=== PATIENT | male | born 1960 | race Caucasian/White ===

== ENCOUNTER → 2018-04-25 | Outpatient (CLI) | payer OTHER ==
--- NOTE | 2018-04-25 17:16 | ECHOF ---
Referral Reason:I10 Hypertension MEASUREMENTS -------- HEIGHT: 162.6 cm WEIGHT: 96.2 kg BP: IVSd: 1.3 cm (0.6 - 1.1) LVIDd: 4.9 cm (3.9 - 5.3) LVPWd: 1.6 cm (0.6 - 1.1) IVSs: 1.5 cm LVIDs: 3.7 cm LVPWs: 2.1 cm LA Diam: 4.4 cm (2.7 - 3.8) RVIDd: 2.6 cm (< 3.3) LAESV Index (A-L): 39.29 ml/m Ao Diam: 2.9 cm (2.0 - 3.7) LA Diam: 4.4 cm (2.7 - 3.8) AV Cusp: 2.5 cm (1.5 - 2.6) EPSS: 0.5 cm MV E Eder: 0.55 m/s MV DecT: 168 ms MV A Eder: 0.77 m/s MV E/A Ratio: 0.72 AR PHT: 665 ms RAP: 5.00 mmHg RVSP: 25.69 mmHg MV EF SLOPE: 102.09 mm/s (70 - 150) MV EXCURSION: 17.01 mm (> 18.000) FINDINGS -------- Sinus rhythm. This was a technically good study. The left ventricular size is normal. There is moderate concentric left ventricular hypertrophy. O verall left ventricular systolic function is normal with, an EF between 55 - 60 %. The right ventricle is normal in size. The left atrial size is normal. The right atrial size is normal. The aortic valve is trileaflet, and appears structurally normal. No aortic stenosis or regurgitation. There is mild aortic valve sclerosis. There is mild aortic regurgitation. Mild mitral annular calcification present. Mild mitral regurgitation is present. Mild tricuspid regurgitation present. There is no evidence of pulmonary hypertension. The right v entricular systolic pressure, as measured by Doppler, is 25.69mmHg. Trace/mild (physiologic) pulmonic regurgitation. The aortic root size is normal. There is no pericardial effusion. CONCLUSIONS -------- 1. The left ventricular size is normal. 2. There is moderate concentric left ventricular hypertrophy. 3. Overall left ventricular systolic function is normal with, an EF between 55 - 60 %. 4. The right ventricle is normal in size. 5. The left atrial size is normal. 6. The right atrial size is normal. 7. The aortic valve is trileaflet, and appears structurally normal. No aortic stenosis or regurgitati on. 8. There is mild aortic valve sclerosis. 9. There is mild aortic regurgitation. 10. Mild mitral annular calcification present. 11. Mild mitral regurgitation is present. 12. Mild tricuspid regurgitation present. 13. There is no evidence of pulmonary hypertension. 14. The right ventricular systolic pressure, as measured by Doppler, is 25.69mmHg. 15. Trace/mild (physiologic) pulmonic regurgitation. 16. The aortic root size is normal. 17. There is no pericardial effusion. MEDICAL STAFF SERVICES COORDINATOR: Stefany Ryan RDCS
== END | disposition home or self-care (01) ==
LOC: RADNMMAIN 10:33
PROVIDERS: ATTEND Internal Medicine
DX: I08.3 Combined rheumatic disorders of mitral, aortic and tricuspid valves (principal); I10 Essential (primary) hypertension
CPT/HCPCS: 93306

== ENCOUNTER → 2018-05-24 | Outpatient (CLI) | payer OTHER ==
--- NOTE | 2018-05-24 13:03 | EST ---
EXERCISE STRESS AGE: 58 SEX: M HT: 70 WT: 212 PROTOCOL: Satya Stress Test STAGE: 3 DURATION OF EXERCISE: 6:00 HEART RATE REST: 74 BLOOD PRESSURE REST: 174/100 MAXIMUM HEART RATE ACHIEVED: 143 MAXIMUM BLOOD PRESSURE: 215/102 85% MPHR: 137 100% MPHR: 161 METS: 7.1 INDICATIONS: Hypertension. CLINICAL INFORMATION: STRESS DATA: Pretesting physical examination showed a heart rate of 74, pressure is 174/100 mmHg. Baseline EKG showed sinus mechanism. The patient exercised on the treadmill according to Satya protocol for a total of 6 minutes and achieved 7.1 METS. Max heart rate was 143, which is about 89% of maximum predicted heart rate. Maximum blood pressure was 215/102 mmHg. Clinically, the patient did not have any symptoms of chest pain or discomfort and the EKG did not show any significant ST or T-wave abnormalities concerning for ischemia. CONCLUSION: 1. Good exercise tolerance. 2. Normal EKG in response to exercise. 3. Essentially normal stress test for the patient. MMODL / IJN: [id number] /
== END | disposition home or self-care (01) ==
LOC: RADNMMAIN 08:33
PROVIDERS: ATTEND Internal Medicine
DX: I10 Essential (primary) hypertension (principal)
CPT/HCPCS: 93017

== ENCOUNTER → 2020-08-09 | Outpatient (CLI) | payer OTHER | END | disposition home or self-care (01) | LOC: LABPAT 07:28 | PROVIDERS: ATTEND Surgery | DX: Z01.812 Encounter for preprocedural laboratory examination (principal); Z11.52 Encounter for screening for COVID-19 | CPT/HCPCS: U0003; C9803; U0005 ==

== ENCOUNTER → 2020-08-16 | Day surgery (SDC) | payer OTHER ==
[2020-08-13 14:10] VITALS: BMI 31.0
[~2020-08-16] MED LIST: LACTATED RINGERS 1,000 ML IV ONE; LACTATED RINGERS 1,000 ML IV SCH; LIDOCAINE 1% (10MG/ML) FOR IV START INTRADERMA PRN; LIDOCAINE 1% INJ 10MG/ML (20 ML MDV) ONE; PROPOFOL 10 MG/ML 20 ML VIAL IV ONE
[2020-08-16 08:08] VITALS: TEMP 97.6
--- NOTE | 2020-08-16 09:01 | P.PCN ---
Date of Procedure: 08/16/20 Preoperative Diagnosis: Screening Postoperative Diagnosis: Diverticulosis Sigmoid colon polyp Procedure(s) Performed: Colonoscopy with hot snare polypectomy Anesthesia: MAC Surgeon: Juan Pablo Mcwilliams Pathology: other (Sigmoid colon polyp) Condition: stable Disposition: same day Indications for Procedure: 60-year-old male presents today for screening colonoscopy. Risks, benefits and alternatives were provided to the patient. He did provide consent prior to attending the endoscopy suite. Operative Findings: Mild diverticulosis of the sigmoid colon Sigmoid colon polyp Description of Procedure: The patient was brought to the endoscopy suite and placed in left lateral decubitus position and adequate sedation was achieved using conscious sedation. A digital rectal exam was performed and mild internal hemorrhage are palpated. An endoscope was then placed in the rectum and advanced to the cecum as identified by landmarks including the appendiceal orifice and the ileocecal valve. The prep was good. The colonoscope was then slowly withdrawn, examining for any mucosal abnormality. The cecum, ascending, transverse, descending and sigmoid colon were visualized adequately. There were no large neoplastic lesions noted throughout the colon. Mild amount of diverticulosis was noted in the sigmoid colon. A small sigmoid colon polyp was also noted. This was removed with hot snare polypectomy. Hemostasis was maintained. Retroflexion was performed in the rectum and internal hemorrhoids were visible. Excess air was removed, the colonoscope withdrawn and the procedure terminated. The patient was then transferred to the recovery unit in stable condition. Repeat colonoscopy should be performed in 5 years.
[2020-08-16 09:17] VITALS: BP 115/78; PULSE 78; RESP 18
== END | disposition home or self-care (01) ==
LOC: ORWHC2ENDO 07:51
PROVIDERS: ATTEND Surgery
DX: Z12.11 Encounter for screening for malignant neoplasm of colon (principal); K63.5 Polyp of colon; K57.30 Diverticulosis of large intestine without perforation or abscess without bleeding; K63.3 Ulcer of intestine; K64.8 Other hemorrhoids; I10 Essential (primary) hypertension; E78.00 Pure hypercholesterolemia, unspecified; M10.9 Gout, unspecified; Z98.890 Other specified postprocedural states; Z96.659 Presence of unspecified artificial knee joint; Z80.8 Family history of malignant neoplasm of other organs or systems; Z80.0 Family history of malignant neoplasm of digestive organs; Z82.49 Family history of ischemic heart disease and other diseases of the circulatory system; Z79.82 Long term (current) use of aspirin; Z79.899 Other long term (current) drug therapy; E78.5 Hyperlipidemia, unspecified
CPT/HCPCS: 88305; 45385; J2001; J2704

== ENCOUNTER 2022-01-28 16:04 | Observation (INO) | payer BC, OTHER ==
[2022-01-28 17:15] LABS: Basophils # (A) 0.1 k/uL (0-0.2); Basophils % (A) 1 %; Eosinophils # (A) 0.1 k/uL (0-0.7); Eosinophils % (A) 2 %; HCT 39.5 % (39.0-53.0); HGB 13.6 gm/dL (13.0-17.5); Lymphocytes # (A) 1.4 k/uL (1.0-4.8); Lymphocytes % (A) 22 %; MCH 31.8 pg (25.0-35.0); MCHC 34.5 g/dL (31.0-37.0); MCV 92.1 fL (80.0-100.0); Mean Platelet Volume 7.4; Monocytes # (A) 0.4 k/uL (0-1.0); Monocytes % (A) 6 %; Neutrophils # (A) 4.3 k/uL (1.3-7.7); Neutrophils % (A) 67 %; Platelet Count 259 k/uL (150-450); RBC 4.29 m/uL (4.30-5.90); RDW 13.3 % (11.5-15.5); WBC 6.4 k/uL (3.8-10.6)
[2022-01-28 17:19] LABS: Albumin 4.2 g/dL (3.5-5.0); Calcium 9.3 mg/dL (8.4-10.2); Potassium 4.5 mmol/L (3.5-5.1); Total Bilirubin 1.1 mg/dL (0.2-1.3); Total Protein 7.2 g/dL (6.3-8.2)
[2022-01-28] MEDS ORDERED: HYDROmorphone 0.5 MG/0.5 ML SYRINGE IVP STA (18:19)
[2022-01-28] MEDS ORDERED: SODIUM CHLORIDE 0.9% 1,000 ML IV STA (18:20)
[2022-01-28 18:58] LABS: Appearance,Urine Clear (Clear); Bilirubin,Urine Negative (Negative); Blood,Urine Negative (Negative); Color,Urine Light Yellow; Glucose,Urine (UA) Negative (Negative); Ketones,Urine Negative (Negative); Leukocyte Esterase,Urine Negative (Negative); Nitrite,Urine Negative (Negative); PH, Urine 5.5 (5.0-8.0); Protein,Urine Negative (Negative); Specific Gravity,Urine 1.015 (1.001-1.035); Urobilinogen,Urine <2.0 mg/dL (<2.0)
--- NOTE | 2022-01-28 19:53 | CT ---
EXAMINATION TYPE: CT abdomen pelvis w con DATE OF EXAM: 01/28/2022 COMPARISON: None HISTORY: left abd pain CT DLP: 1155.4 mGycm Automated exposure control for dose reduction was used. CONTRAST: Performed with IV Contrast, patient injected with 80 mL of Isovue 300. Images obtained from the diaphragm to the floor the pelvis with IV contrast. Lung bases are clear of consolidation. No pleural effusion. Heart size is normal. No pericardial effu finn. Liver is intact. There is 3 cm cyst in the left lobe of the liver. There are smaller cysts in the lef t lobe of the liver. Spleen is intact. No pancreatic mass. The stomach is intact. There is no adrenal mass. Kidneys have normal size and contour. No hydronephrosis. Ureters are not di lated. No retroperitoneal adenopathy. Bladder distends smoothly. No inguinal hernia. There is prostat e calcification. There is no mesenteric edema. No ascites or free air. No sign of a bowel obstruction. There are sigmo id diverticula. No diverticulitis. Appendix appears normal. The lumbar vertebra show a second-degree L5-S1 spondylolisthesis. There is bilateral L5 spondylolysis . No compression fracture. There is narrowing at L4-5 disc and L5-S1 disc. The bony pelvis is intact. The hip joints are intact. IMPRESSION: Second degree L5-S1 spondylolisthesis. Sigmoid diverticulosis. Normal appendix. No acute abnormality in the abdomen and pelvis.
--- NOTE | 2022-01-28 20:32 | ED ---
Abdominal Pain HPI - General Chief Complaint: Abdominal Pain Stated Complaint: ABD Pain Time Seen by Provider: 01/28/22 18:07 Source: patient Mode of arrival: ambulatory Limitations: no limitations - History of Present Illness Initial Comments: Patient is a 61-year-old male with past medical history of hypertension and diverticulosis who presents to the emergency department with a chief complaint abdominal pain. Patient reports spasms in his right upper abdomen that started 3 weeks ago. During the past week the pain has migrated to his left abdomen, mostly left upper and to a lesser extent, left lower. States the spasms occur throughout the day and usually last around 5 seconds. Worse in the morning. Pain is not related to food intake. Taking Motrin for pain with some relief. Denies fever, chills, nausea, vomiting, diarrhea. Reports normal bowel movements daily, nonbloody. Denies history of abdominal surgery. Denies chest pain and shortness of breath. Patient had colonoscopy last year which showed diverticulosis and a sigmoid polyp which was removed. - Related Data Home Medications Medication Instructions Recorded Confirmed Multivitamins, Thera [Multivitamin 1 tab PO DAILY 08/13/20 01/28/22 (formulary)] Itraconazole 100 mg PO DAILY 01/28/22 01/28/22 Losartan Potassium [Cozaar] 100 mg PO DAILY 01/28/22 01/28/22 Rosuvastatin [Crestor] 10 mg PO DAILY 01/28/22 01/28/22 Allergies Allergy/AdvReac Type Severity Reaction Status Date / Time No Known Allergies Allergy Verified 01/28/22 16:47 Review of Systems ROS Statement: Those systems with pertinent positive or pertinent negative responses have been documented in the HPI. ROS Other: All systems not noted in ROS Statement are negative. Past Medical History Past Medical History: Hyperlipidemia, Hypertension History of Any Multi-Drug Resistant Organisms: None Reported Past Surgical History: Orthopedic Surgery Additional Past Surgical History / Comment(s): knee replacement x 2 Past Psychological History: No Psychological Hx Reported Smoking Status: Never smoker Past Alcohol Use History: Occasional Past Drug Use History: None Reported General Exam Limitations: no limitations General appearance: alert, in no apparent distress Eye exam: Present: normal appearance, PERRL, EOMI. Absent: scleral icterus, conjunctival injection, periorbital swelling Respiratory exam: Present: normal lung sounds bilaterally. Absent: respiratory distress, wheezes, rales, rhonchi, stridor Cardiovascular Exam: Present: regular rate, normal rhythm, normal heart sounds. Absent: systolic murmur, diastolic murmur, rubs, gallop, clicks GI/Abdominal exam: Present: soft, tenderness (LUQ, mild ), normal bowel sounds. Absent: distended, guarding, rebound, rigid Neurological exam: Present: alert, oriented X3, CN II-XII intact Psychiatric exam: Present: normal affect, normal mood Skin exam: Present: warm, dry, intact, normal color. Absent: rash Course Vital Signs 01/28/22 16:43 Temperature 98.4 F Pulse Rate 66 Respiratory 20 Rate Blood Pressure 149/97 O2 Sat by Pulse 98 Oximetry Medical Decision Making - Medical Decision Making This is a 61-year-old male presenting with abdominal pain. Patient well- appearing and in no apparent distress. Afebrile. Laboratory studies were obtained in triage. There is no leukocytosis. There is mild PRACHI, creatinine 1.31. Troponin is elevated at 0.056. No previous for comparison. No chest pain or shortness of breath. Patient on baby aspirin daily. I did review stress test and echocardiogram in 2019 which were normal. EKG was obtained which shows sinus rhythm with occasional ventricular premature complexes. With history of diverticulosis CT of the abdomen and pelvis with contrast was obtained which is negative for acute process. With patient originally having right upper quadrant spasms I did obtain ultrasound which shows no gallstones or dilated ducts. There are simple liver cysts. Pain controlled well with Dilaudid. Results discussed with patient. Patient will be admitted for trending of troponin. He will possibly need HIDA scan for right upper quadrant pain. We do not have GI services right now. Case discussed with Dr. Linn who accepts admission for observation. Dr. Ivan is my attending. - Lab Data Result diagrams: 01/28/22 16:51 01/28/22 16:51 Lab Results 01/28/22 01/28/22 01/28/22 Range/Units 16:51 16:51 16:51 WBC 6.4 (3.8-10.6) k/uL RBC 4.29 L (4.30-5.90) m/uL Hgb 13.6 (13.0-17.5) gm/dL Hct 39.5 (39.0-53.0) % MCV 92.1 (80.0-100.0) fL MCH 31.8 (25.0-35.0) pg MCHC 34.5 (31.0-37.0) g/dL RDW 13.3 (11.5-15.5) % Plt Count 259 (150-450) k/uL MPV 7.4 Neutrophils % 67 % Lymphocytes % 22 % Monocytes % 6 % Eosinophils % 2 % Basophils % 1 % Neutrophils # 4.3 (1.3-7.7) k/uL Lymphocytes # 1.4 (1.0-4.8) k/uL Monocytes # 0.4 (0-1.0) k/uL Eosinophils # 0.1 (0-0.7) k/uL Basophils # 0.1 (0-0.2) k/uL Sodium 140 (137-145) mmol/L Potassium 4.5 (3.5-5.1) mmol/L Chloride 105 (98-107) mmol/L Carbon Dioxide 23 (22-30) mmol/L Anion Gap 12 mmol/L BUN 21 H (9-20) mg/dL Creatinine 1.31 H (0.66-1.25) mg/dL Est GFR (CKD-EPI)AfAm 67 (>60 ml/min/1.73 sqM) Est GFR (CKD-EPI)NonAf 58 (>60 ml/min/1.73 sqM) Glucose 86 (74-99) mg/dL Calcium 9.3 (8.4-10.2) mg/dL Total Bilirubin 1.1 (0.2-1.3) mg/dL AST 26 (17-59) U/L ALT 27 (4-49) U/L Alkaline Phosphatase 69 (38-126) U/L Troponin I 0.056 H* (0.000-0.034) ng/mL Total Protein 7.2 (6.3-8.2) g/dL Albumin 4.2 (3.5-5.0) g/dL Amylase 52 (30-110) U/L Lipase 70 (23-300) U/L Urine Color Urine Appearance (Clear) Urine pH (5.0-8.0) Ur Specific [place] (1.001-1.035) Urine Protein (Negative) Urine Glucose (UA) (Negative) Urine Ketones (Negative) Urine Blood (Negative) Urine Nitrite (Negative) Urine Bilirubin (Negative) Urine Urobilinogen (<2.0) mg/dL Ur Leukocyte Esterase (Negative) 01/28/22 Range/Units 18:45 WBC (3.8-10.6) k/uL RBC (4.30-5.90) m/uL Hgb (13.0-17.5) gm/dL Hct (39.0-53.0) % MCV (80.0-100.0) fL MCH (25.0-35.0) pg MCHC (31.0-37.0) g/dL RDW (11.5-15.5) % Plt Count (150-450) k/uL MPV Neutrophils % % Lymphocytes % % Monocytes % % Eosinophils % % Basophils % % Neutrophils # (1.3-7.7) k/uL Lymphocytes # (1.0-4.8) k/uL Monocytes # (0-1.0) k/uL Eosinophils # (0-0.7) k/uL Basophils # (0-0.2) k/uL Sodium (137-145) mmol/L Potassium (3.5-5.1) mmol/L Chloride (98-107) mmol/L Carbon Dioxide (22-30) mmol/L Anion Gap mmol/L BUN (9-20) mg/dL Creatinine (0.66-1.25) mg/dL Est GFR (CKD-EPI)AfAm (>60 ml/min/1.73 sqM) Est GFR (CKD-EPI)NonAf (>60 ml/min/1.73 sqM) Glucose (74-99) mg/dL Calcium (8.4-10.2) mg/dL Total Bilirubin (0.2-1.3) mg/dL AST (17-59) U/L ALT (4-49) U/L Alkaline Phosphatase (38-126) U/L Troponin I (0.000-0.034) ng/mL Total Protein (6.3-8.2) g/dL Albumin (3.5-5.0) g/dL Amylase (30-110) U/L Lipase (23-300) U/L Urine Color Light Yellow Urine Appearance Clear (Clear) Urine pH 5.5 (5.0-8.0) Ur Specific [place] 1.015 (1.001-1.035) Urine Protein Negative (Negative) Urine Glucose (UA) Negative (Negative) Urine Ketones Negative (Negative) Urine Blood Negative (Negative) Urine Nitrite Negative (Negative) Urine Bilirubin Negative (Negative) Urine Urobilinogen <2.0 (<2.0) mg/dL Ur Leukocyte Esterase Negative (Negative) Disposition Clinical Impression: RUQ pain, LUQ pain, Elevated troponin Disposition: ADMITTED IP TO THIS [facility] Condition: Good Is patient prescribed a controlled substance at d/c from ED?: No Referrals: Elsie Franco MD [Primary Care Provider] - 1-2 days Time of Disposition: 20:54
--- NOTE | 2022-01-28 20:47 | US ---
EXAMINATION TYPE: US abdomen limited DATE OF EXAM: 01/28/2022 COMPARISON: CT: Today CLINICAL HISTORY: RUQ spasms. RUQ spasms TECHNIQUE: Multiple sonographic images of the right upper quadrant are obtained. FINDINGS: EXAM MEASUREMENTS: Liver Length: 18.9 cm Gallbladder Wall: 0.20 cm CBD: 0.34 cm Right Kidney: 12.3 x 5.4 x 5.2 cm PAN DEVULCANIZER NOTES: Pancreas: Obscured by bowel gas Liver: Multiple cysts seen in left lobe. Largest = 1.9 x 2.7 x 2.4cm Gallbladder: wnl Evidence for sonographic Hernandez's sign: No CBD: wnl Right Kidney: wnl IMPRESSION: No gallstones or dilated ducts. Simple liver cysts.
[2022-01-28] MEDS ORDERED: HYDROmorphone 0.5 MG/0.5 ML SYRINGE IVP PRN (21:33)
[2022-01-28] MEDS ORDERED: NALOXONE 0.4 MG/ML 1 ML VIAL IV PRN (21:34)
[2022-01-28] MEDS: SODIUM CHLORIDE 0.9% 1,000 ML IV SCH (23:37)
--- NOTE | 2022-01-29 00:35 | P.HPIM ---
History of Present Illness H&P Date: 01/28/22 The patient is a 61-year-old male with a PMH of chronic kidney disease, hypertension and hyperlipidemia who presents to the emergency room with complaints of right upper quadrant or left upper quadrant pain. The patient reports that over the past 3 weeks, he is experiencing intermittent right upper quadrant discomfort, pressure-like and sharp in nature, occurs 10-20 times per day, brought on with certain physical movements, strongly pleuritic in nature, nonradiating, lasting for only up to 5 seconds at a time and then resolving spontaneously. He reports that the pain had increased in frequency, which prompted him to come to the emergency room. He denies experiencing nausea, vomi ting, diarrhea. Also denies palpitations, diaphoresis, lightheadedness, or substernal chest pressure. Reports that he usually gets this pain whenever he tries to stretch first thing in the morning. He has been taking [id number] Motrin for pain control. CT abdomen and pelvis revealed sigmoi d diverticulosis but otherwise unremarkable. Right upper quadrant ultrasound was unremarkable. EKG revealed sinus rhythm with PVCs at 65 bpm with intraventricular conduction delay and T-wave inversion in leads 3 and V1. Laboratory evaluation revealed troponin of 0.056 with creatinine 1.31. Review of systems: Pertinent positives and negatives as discussed in HPI, a complete review of systems was performed and all other systems are negative. Physical examination: General: non toxic, no distress, appears at stated age, overweight Derm: no unusual rashes/lesions, warm Head: atraumatic, normocephalic, symmetric Eyes: EOMI, no lid lag, anicteric sclera, pupils equal round reactive to light ENT: Nose and ears atraumatic Neck: No cervical lymphadenopathy, trachea midline, supple Mouth: no lip lesion, mucus membranes moist Cardiovascular: S1S2 reg, no murmur, positive dorsalis pedis pulse bilateral, no edema Lungs: CTA bilateral, no rhonchi, no rales, no accessory muscle use Abdominal: soft, nontender to palpation, no guarding Ext: muscle strength 5 out of 5 in all 4 extremities grossly, no gross muscle atrophy, no contractures, Neuro: CN II-XI grossly intact, no gross focal neuro deficits Psych: Alert, oriented, appropriate affect Assessment/plan Elevated troponin -Trend for now -Cardiac monitoring -Patient denied any prior history of heart disease Right upper quadrant and left upper quadrant pain -Suspect secondary to muscle spasm due to strong pleuritic nature DVT prophylaxis -Heparin subq The patient is admitted with an anticipated less than 2 midnight stay for evaluation of elevated troponin CODE STATUS: Full Code Discussed with: Patient Anticipated discharge date: in am Anticipated discharge place: Home Past Medical History Past Medical History: Hyperlipidemia, Hypertension History of Any Multi-Drug Resistant Organisms: None Reported Past Surgical History: Orthopedic Surgery Additional Past Surgical History / Comment(s): knee replacement x 2 Past Psychological History: No Psychological Hx Reported Smoking Status: Never smoker Past Alcohol Use History: Occasional Past Drug Use History: None Reported - Past Family History Father Family Medical History: Hypertension Medications and Allergies Home Medications Medication Instructions Recorded Confirmed Type Multivitamins, Thera [Multivitamin 1 tab PO DAILY 08/13/20 01/28/22 History (formulary)] Itraconazole 100 mg PO DAILY 01/28/22 01/28/22 History Losartan Potassium [Cozaar] 100 mg PO DAILY 01/28/22 01/28/22 History Rosuvastatin [Crestor] 10 mg PO DAILY 01/28/22 01/28/22 History Allergies Allergy/AdvReac Type Severity Reaction Status Date / Time No Known Allergies Allergy Verified 01/28/22 16:47 Physical Exam Vitals: Vital Signs Temp Pulse Resp BP Pulse Ox 01/28/22 23:38 65 16 122/86 97 01/28/22 16:43 98.4 F 66 20 149/97 98 Intake and Output 01/28/22 01/28/22 01/29/22 14:59 22:59 06:59 Other: Weight 92.986 kg Results CBC & Chem 7: 01/28/22 16:51 01/28/22 16:51 Labs: Abnormal Lab Results - Last 24 Hours (Table) 01/28/22 01/28/22 01/28/22 Range/Units 16:51 16:51 16:51 RBC 4.29 L (4.30-5.90) m/uL BUN 21 H (9-20) mg/dL Creatinine 1.31 H (0.66-1.25) mg/dL Troponin I 0.056 H* (0.000-0.034) ng/mL 01/28/22 Range/Units 21:38 RBC (4.30-5.90) m/uL BUN (9-20) mg/dL Creatinine (0.66-1.25) mg/dL Troponin I 0.055 H* (0.000-0.034) ng/mL
[2022-01-29] MEDS: LOSARTAN 50 MG TAB PO SCH (08:36)
[2022-01-29] MEDS: HEPARIN SODIUM,PORCINE/PF 5,000 UNIT/0.5 ML SYRINGE SQ SCH ×3 (08:36→23:49)
[2022-01-29] MEDS: ASPIRIN 81 MG PO SCH (08:36)
[2022-01-29] MEDS: ATORVASTATIN 20 MG TAB PO SCH (08:37)
--- NOTE | 2022-01-29 09:43 | P.CRDCN ---
History of Present Illness History of present illness: HISTORY OF PRESENTING ILLNESS This is a pleasant 61-year-old male past medical history significant for hypertension, dyslipidemia. 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 We have been asked to see in consultation for elevated troponin. Patient presents emergency department with complaints of abdominal pain that began 3 weeks ago. He states the pain started in his right upper quadrant and radiated to his left upper quadrant and left lower quadrant. He states its been progressively getting worse over the past 3 weeks. Describes the pain as cramping and spasms. It has occurred several times while he is sitting and when moving as well. The pain does not occur with exertion. He does not have any chest pain, shortness of breath, lightheadedness, dizziness, palpitations, syncope or near syncope. The pain resolves on its own. He went to be evaluated by his primary care provider, since his pain was not improving it was recommended patient come to the emergency department for further evaluation. He denies any history of any heart disease. Denies any history of CAD, IA, stroke, diabetes, seizures, arrhythmia. He denies a family history of coronary disease. He denies any tobacco use. DIAGNOSTICS * EKG reveals sinus rhythm, heart rate 65, PVC, no STT wave abnormalities sugge st acute ischemia * Telemetry tracings indicate sinus mechanism * Abdominal and pelvis CT revealed second-degree L571 spondylolisthesis, sigmoid diverticulosis, no acute abnormality in the abdomen and pelvis * Laboratory reviewed CBC unremarkable, troponin 0.056, 0.055, 0.049, sodium 140, potassium 4.5, BUN 21, serum creatinine 1.31 * Current home medications include simvastatin 10 mg daily, losartan 100 mg daily, multivitamin REVIEW OF SYSTEMS At the time of my exam: CONSTITUTIONAL: Denies fever or chills. CARDIOVASCULAR: Denies chest pain, shortness of breath, orthopnea, PND or palpitations. RESPIRATORY: Denies cough. GASTROINTESTINAL: + abdominal pain, Denies diarrhea, constipation, nausea or vomiting. MUSCULOSKELETAL: Denies myalgias. NEUROLOGIC: Denies numbness, tingling, headacbe or weakness. ENDOCRINE: Denies fatigue, weight change, polydipsia or polyurina. GENITOURINARY: Denies burning, hematuria or urgency with micturation. HEMATOLOGIC: Denies history of anemia or bleeding. PHYSICAL EXAMINATION Blood pressure 154/99, heart rate 71, afebrile, saturations 98% on room air CONSTITUTIONAL: No apparent distress. HEENT: Head is normocephalic. Pupils are equal, round. Sclerae anicteric. Mucous membranes of the mouth are moist. No JVD. No carotid bruit. CHEST EXAMINATION: Lungs are clear to auscultation. No chest wall tenderness is noted on palpation or with deep breathing. HEART EXAMINATION: Regular rate and rhythm. S1, S2 heard. No murmurs, gallops or rub. ABDOMEN: Soft, nontender. Positive bowel sounds. EXTREMITIES: 2+ peripheral pulses, no lower extremity edema and no calf tenderness. NEUROLOGIC EXAMINATION: Patient is awake, alert and oriented x3. ASSESSMENT Elevated troponin, unclear etiology at this time Abdominal pain Hypertension Dyslipidemia PLAN Unclear why patient's troponin is abnormal, possibly related to chronic kidney disease, no evidence of acute ischemic changes no EKG, patient without chest pain, exertional pain or shortness of breath. Obtain 2D echocardiogram and doppler study to assess cardiac structure and function. Abdominal pain workup per primary Further recommendations based on clinical course Nurse practitioner note has been reviewed by physician. Signing provider agrees with the documented findings, assessment, and plan of care. Past Medical History Past Medical History: Hyperlipidemia, Hypertension History of Any Multi-Drug Resistant Organisms: None Reported Past Surgical History: Orthopedic Surgery Additional Past Surgical History / Comment(s): knee replacement x 2 Past Psychological History: No Psychological Hx Reported Smoking Status: Never smoker Past Alcohol Use History: Occasional Past Drug Use History: None Reported - Past Family History Father Family Medical History: Hypertension Medications and Allergies Home Medications Medication Instructions Recorded Confirmed Type Multivitamins, Thera [Multivitamin 1 tab PO DAILY 08/13/20 01/28/22 History (formulary)] Itraconazole 100 mg PO DAILY 01/28/22 01/28/22 History Losartan Potassium [Cozaar] 100 mg PO DAILY 01/28/22 01/28/22 History Rosuvastatin [Crestor] 10 mg PO DAILY 01/28/22 01/28/22 History Allergies Allergy/AdvReac Type Severity Reaction Status Date / Time No Known Allergies Allergy Verified 01/28/22 16:47 Physical Exam Vitals: Vital Signs Temp Pulse Pulse Resp BP BP Pulse Ox 01/29/22 08:00 71 16 154/99 98 01/29/22 05:38 63 14 126/91 97 01/28/22 23:38 65 16 122/86 97 01/28/22 16:43 98.4 F 66 20 149/97 98 Intake and Output 01/28/22 01/29/22 01/29/22 22:59 06:59 14:59 Other: Weight 92.986 kg Results 01/28/22 16:51 01/28/22 16:51 Cardiac Enzymes 01/28/22 01/28/22 01/28/22 Range/Units 16:51 16:51 21:38 AST 26 (17-59) U/L Troponin I 0.056 H* 0.055 H* (0.000-0.034) ng/mL 01/29/22 Range/Units 04:25 AST (17-59) U/L Troponin I 0.049 H* (0.000-0.034) ng/mL CBC 01/28/22 Range/Units 16:51 WBC 6.4 (3.8-10.6) k/uL RBC 4.29 L (4.30-5.90) m/uL Hgb 13.6 (13.0-17.5) gm/dL Hct 39.5 (39.0-53.0) % Plt Count 259 (150-450) k/uL Comprehensive Metabolic Panel 01/28/22 Range/Units 16:51 Sodium 140 (137-145) mmol/L Potassium 4.5 (3.5-5.1) mmol/L Chloride 105 (98-107) mmol/L Carbon Dioxide 23 (22-30) mmol/L BUN 21 H (9-20) mg/dL Creatinine 1.31 H (0.66-1.25) mg/dL Glucose 86 (74-99) mg/dL Calcium 9.3 (8.4-10.2) mg/dL AST 26 (17-59) U/L ALT 27 (4-49) U/L Alkaline Phosphatase 69 (38-126) U/L Total Protein 7.2 (6.3-8.2) g/dL Albumin 4.2 (3.5-5.0) g/dL Current Medications Generic Name Dose Route Start Last Admin Trade Name Freq PRN Reason Stop Dose Admin Aspirin 81 mg 01/29/22 09:00 01/29/22 08:36 Aspirin 81 Mg PO 81 mg DAILY [facility] Administration Atorvastatin Calcium 20 mg 01/29/22 09:00 01/29/22 08:37 Atorvastatin 20 Mg Tab PO 20 mg DAILY [facility] Administration Heparin Sodium (Porcine) 5,000 unit 01/29/22 08:00 01/29/22 08:36 Heparin Sodium,Porcine/Pf 5,000 Unit/0.5 Ml Syringe SQ 5,000 unit Q8HR [facility] Administration Hydromorphone HCl 0.5 mg 01/28/22 21:33 Hydromorphone 0.5 Mg/0.5 Ml Syringe IVP Q4H PRN Pain Sodium Chloride 1,000 mls @ 75 mls/hr 01/28/22 21:45 01/28/22 23:37 Saline 0.9% IV 75 mls/hr .[id number] [facility] Administration Losartan Potassium 100 mg 01/29/22 09:00 01/29/22 08:36 Losartan 50 Mg Tab PO 100 mg DAILY [facility] Administration Naloxone HCl 0.2 mg 01/28/22 21:34 Naloxone 0.4 Mg/Ml 1 Ml Vial IV Q2M PRN Opioid Reversal Intake and Output 01/28/22 01/29/22 01/29/22 22:59 06:59 14:59 Other: Weight 92.986 kg 01/28/22 16:51 01/28/22 16:51
[2022-01-29] MEDS ORDERED: CYCLOBENZAPRINE 5 MG TAB PO PRN (11:47)
--- NOTE | 2022-01-29 16:30 | P.PN ---
Subjective Progress Note Date: 01/29/22 The patient is a 61-year-old male with a PMH of chronic kidney disease, hypertension and hyperlipidemia who presents to the emergency room with complaints of right upper quadrant or left upper quadrant pain. The patient reports that over the past 3 weeks, he is experiencing intermittent right upper quadrant discomfort, pressure-like and sharp in nature, occurs 10-20 times per day, brought on with certain physical movements, strongly pleuritic in nature, nonradiating, lasting for only up to 5 seconds at a time and then resolving spontaneously. Also denies palpitations, diaphoresis, lightheadedness, or substernal chest pressure. CT abdomen and pelvis revealed sigmoid diverticulosis but otherwise unremarkable. RUQ US was unremarkable. EKG revealed sinus rhythm with PVCs at 65 bpm with intraventricular conduction delay and T-wave inversion in leads 3 and V1. Laboratory evaluation revealed troponin of 0.056 with creatinine 1.31. Patient was seen and examined. No acute events overnight. Patient reports continued abdominal pain, generalized, worsened with movement in certain directions. He reports the pain to be spastic in nature. He does heavy lifting for a living. Currently denies any chest pain, shortness of breath or palpitations. No nausea or vomiting. No fever or chills. General: non toxic, no distress, appears at stated age, overweight Derm: no unusual rashes/lesions, warm Head: atraumatic, normocephalic, symmetric Eyes: EOMI, no lid lag, anicteric sclera ENT: Nose and ears atraumatic Neck: No cervical lymphadenopathy, trachea midline, supple Mouth: no lip lesion, mucus membranes moist Cardiovascular: S1S2 reg, no murmur Lungs: CTA bilateral, no rhonchi, no rales, no accessory muscle use Ext: muscle strength 5 out of 5 in all 4 extremities grossly Neuro: no gross focal neuro deficits Psych: Alert, oriented, appropriate affect #Elevated troponin Troponin 0.056, 0.055, 0.049 with EKG showing NSR with PVC. ACS ruled out. Unclear etiology at this time. Cardiology on board. Obtain echocardiogram. Telemetry monitoring. #Abdominal pain Likely musculoskeletal as patient describes it to be spastic in nature. CT AP and RUQ US negative. Magnesium 1.8, replace with magnesium sulfate 4g IV today. Flexeril as needed for spasms. #Acute kidney injury Likely due to dehydration. Continue normal saline at 75 mL per hour. DVT prophylaxis: Heparin Discussed with: Patient and Anticipated discharge: 1-[address]: Home A total of 20 minutes was spent on the care of this complex patient more than 50% of the time was spent in counseling and care coordination. Plans to observe the patient overnight as per cardiology recommendations. Echocardiogram is pending. Anticipated DC home tomorrow. Objective - Vital Signs Vital signs: Vital Signs Temp 98.4 F 01/28/22 16:43 Pulse 65 01/29/22 16:00 Resp 16 01/29/22 16:00 BP 136/89 01/29/22 16:00 Pulse Ox 97 01/29/22 16:00 FiO2 Intake & Output 01/28/22 01/29/22 01/29/22 18:59 06:59 18:59 Intake Total 200 Balance 200 Weight 92.986 kg 92.986 kg Intake: Intake, IV Titration 200 Amount Sodium Chloride 0.9% 1, 200 000 ml @ 75 mls/hr IV . [id number] [facility] Rx#:[id number] Other: # Voids 3 - Labs CBC & Chem 7: 01/28/22 16:51 01/28/22 16:51 Labs: Abnormal Lab Results - Last 24 Hours (Table) 01/28/22 01/28/22 01/28/22 Range/Units 16:51 16:51 16:51 RBC 4.29 L (4.30-5.90) m/uL BUN 21 H (9-20) mg/dL Creatinine 1.31 H (0.66-1.25) mg/dL Troponin I 0.056 H* (0.000-0.034) ng/mL 01/28/22 01/29/22 Range/Units 21:38 04:25 RBC (4.30-5.90) m/uL BUN (9-20) mg/dL Creatinine (0.66-1.25) mg/dL Troponin I 0.055 H* 0.049 H* (0.000-0.034) ng/mL
[2022-01-29] MEDS: MAGNESIUM SULFATE-D5W PMX 1 GM in DEXTROSE/WATER 1 100ML.BAG IVPB SCH ×4 (17:41→23:01)
[2022-01-29] MEDS: SODIUM CHLORIDE 0.9% 1,000 ML IV SCH (17:58)
--- NOTE | 2022-01-29 21:55 | CA ---
Transthoracic Echo Report Name: Luan Palma Age: 61 Gender: M : 1960 Exam Date: 01/29/2022 08:11 Exam Location: [place] [facility] Ht (in): 70 Wt (lb): 205 Ordering Physician: Marcus Linn MD Attending/Referring Phys: Candle Molder Hand Jasmin Gomez RDCS Procedure CPT: Indications: elevated troponin Cardiac Hx: Technical Quality: Good Contrast 1: Total Dose (mL): Contrast 2: Total Dose (mL): MEASUREMENTS (Male / Female) Normal Values 2D ECHO LV Diastolic Diameter PLAX 4.5 cm 4.2 - 5.9 / 3.9 - 5.3 cm LV Systolic Diameter PLAX 3.0 cm IVS Diastolic Thickness 1.6 cm 0.6 - 1.0 / 0.6 - 0.9 cm LVPW Diastolic Thickness 1.6 cm 0.6 - 1.0 / 0.6 - 0.9 cm LV Relative Wall Thickness 0.7 RV Internal Dim ED PLAX 2.7 cm LA Systolic Diameter LX 3.8 cm 3.0 - 4.0 / 2.7 - 3.8 cm LA Volume 77.9 cm??? 18 - 58 / 22 - 52 cm??? M-MODE Aortic Root Diameter MM 3.4 cm MV E Point Septal Separation 0.3 cm AV Cusp Separation MM 2.7 cm DOPPLER AV Peak Velocity 141.3 cm/s AV Peak Gradient 8.0 mmHg MV Area PHT 3.8 cm??? Mitral E Point Velocity 88.5 cm/s Mitral A Point Velocity 69.1 cm/s Mitral E to A Ratio 1.3 MV Deceleration Time 201.1 ms MV E' Velocity 6.4 cm/s Mitral E to MV E' Ratio 13.9 TR Peak Velocity 284.6 cm/s TR Peak Gradient 32.4 mmHg Right Ventricular Systolic Press 37.4 mmHg FINDINGS Left Ventricle Left ventricular ejection fraction is estimated at 60-65 %. Left ventricular cavity size normal. Moderate concentric left ventricular hypertrophy. Right Ventricle Normal right ventricular size and function. Mild pulmonary hypertension. Right Atrium Normal right atrial size. Left Atrium Moderately increased left atrial volume. Mildly increased left atrial area. No evidence for an atrial septal defect. Mitral Valve Structurally normal mitral valve. Mild mitral regurgitation. Aortic Valve Trileaflet aortic valve. No aortic valve stenosis or regurgitation. Tricuspid Valve Mild tricuspid regurgitation. Pulmonic Valve Mild pulmonic regurgitation. Pericardium Normal pericardium. No pericardial effusion. Aorta Normal size aortic root and proximal ascending aorta. CONCLUSIONS Preserved LV systolic function with moderate LVH Previewed by: Dr. Ramon Willard MD (Electronically Signed) Final Date: 29 January 2022 21:54
--- NOTE | 2022-01-30 06:27 | P.PN ---
Subjective Progress Note Date: 01/30/22 Principal diagnosis: Abnormal troponin The patient is a 61-year-old gentleman with hypertension and dyslipidemia was admitted to the hospital with right upper and left upper quadrant abdominal discomfort. We consulted to see the patient because of abnormal cardiac enzymes. Further investigation was performed including a computed tomography scan of the abdomen which showed no acute abnormalities and also an echo which revealed normal left ventricular systolic function was no significant valvular abnormalities. 01/30/2022 The patient was seen this morning. He remains asymptomatic in terms of chest or chest discomfort and remains also hemodynamically stable. He would like to go home. I discussed with him the option of proceeding with a coronary angiogram for definitive diagnosis versus proceeding with myocardial perfusion imaging stress is but would like to have the stress test as an outpatient. Getting the patient up and around and if he is asymptomatic he potentially go home which is his wishes. Objective - Vital Signs Vital signs: Vital Signs Temp 97.9 F 01/29/22 20:00 Pulse 66 01/30/22 04:00 Resp 16 01/30/22 04:00 BP 136/77 01/30/22 04:00 Pulse Ox 100 01/30/22 04:00 FiO2 Intake & Output 01/29/22 01/29/22 01/30/22 06:59 18:59 06:59 Intake Total 200 1270 Balance 200 1270 Weight 92.986 kg Intake: Intake, IV Titration 200 300 Amount Magnesium Sulfate-D5w Pmx 300 1 gm In Dextrose/Water 1 100ml.bag @ 100 mls/hr IVPB Q1H [facility] Rx#: [id number] Sodium Chloride 0.9% 1, 200 000 ml @ 75 mls/hr IV . [id number] [facility] Rx#:[id number] Oral 970 Other: Voiding Method Toilet # Voids 3 2 - Constitutional General appearance: Present: no acute distress - Respiratory Respiratory: bilateral: CTA - Cardiovascular Rhythm: regular - Labs CBC & Chem 7: 01/28/22 16:51 01/28/22 16:51 Assessment and Plan Assessment: Assessment Evidence of myocardial injury was no evidence of ischemia clinically or by echo Hypertension Dyslipidemia Plan The echo showed normal ejection fraction was normal wall motion abnormalities The patient would like to go home and have a stress test as an outpatient I will follow-up with him in a few days.
[2022-01-30 08:11] VITALS: BP 126/79; PULSE 75; RESP 17; TEMP 98.1
[2022-01-30] MEDS: LOSARTAN 50 MG TAB PO SCH (08:11)
[2022-01-30] MEDS: ASPIRIN 81 MG PO SCH (08:11)
[2022-01-30] MEDS: ATORVASTATIN 20 MG TAB PO SCH (08:11)
[2022-01-30] MEDS: HEPARIN SODIUM,PORCINE/PF 5,000 UNIT/0.5 ML SYRINGE SQ SCH (08:11)
--- NOTE | 2022-01-30 11:35 | P.DS ---
Providers Date of admission: 01/28/22 21:35 Expected date of discharge: 01/30/22 Attending physician: Marcus Linn MD Consults: 01/29/22 07:46 Consult Physician Stat Consulting Provider: Blanco Diego Consult Reason/Comments: elevated trops Do you want consulting provider notified?: Yes Primary care physician: Elsie [place] Hospital Course: The patient is a 61-year-old male with a PMH of chronic kidney disease, hypertension and hyperlipidemia who presents to the emergency room with complaints of right upper quadrant or left upper quadrant pain. The patient reports that over the past 3 weeks, he is experiencing intermittent right upper quadrant discomfort, pressure-like and sharp in nature, occurs 10-20 times per day, brought on with certain physical movements, strongly pleuritic in nature, nonradiating, lasting for only up to 5 seconds at a time and then resolving spontaneously. Also denies palpitations, diaphoresis, lightheadedness, or substernal chest pressure. CT abdomen and pelvis revealed sigmoid diverticulosis but otherwise unremarkable. RUQ US was unremarkable. EKG revealed sinus rhythm with PVCs at 65 bpm with intraventricular conduction delay and T-wave inversion in leads 3 and V1. Laboratory evaluation revealed troponin of 0.056 with creatinine 1.31. His troponins trended 0.055 and 0.049. Echocardiogram was done which showed preserved LV systolic function with moderate LVH. Cardiology recommended stress test versus cardiac catheterization but patient elected to do this outpatient rather than inpatient. Patient was seen and examined. No acute events overnight. Patient reports complete resolution of his abdominal discomfort. He'll be discharged home on aspirin and Lipitor. He is advised to follow-up with his PCP within 1-2 days of discharge. Patient is advised follow-up with cardiology within 1 week of discharge to undergo stress test versus cardiac catheterization. Patient advised to come back for worsening chest pain, shortness breath, palpitations or lightheadedness. Patient verbalized understanding of the plan. Pertinent studies include CT AP, Abdominal US, Echocardiogram General: non toxic, no distress, appears at stated age, overweight Derm: no unusual rashes/lesions, warm Head: atraumatic, normocephalic, symmetric Eyes: EOMI, no lid lag, anicteric sclera ENT: Nose and ears atraumatic Neck: No cervical lymphadenopathy, trachea midline, supple Mouth: no lip lesion, mucus membranes moist Cardiovascular: S1S2 reg, no murmur Lungs: CTA bilateral, no rhonchi, no rales, no accessory muscle use Ext: muscle strength 5 out of 5 in all 4 extremities grossly Neuro: no gross focal neuro deficits Psych: Alert, oriented, appropriate affect Discharge Diagnosis: #Elevated troponin #Abdominal pain #Acute kidney injury Patient Condition at Discharge: Stable Plan - Discharge Summary Discharge Rx Participant: No New Discharge Prescriptions: New Aspirin 81 mg PO DAILY #30 tab Cyclobenzaprine [Flexeril] 5 mg PO TID PRN #30 tab PRN Reason: Muscle Spasm Continue Multivitamins, Thera [Multivitamin (formulary)] 1 tab PO DAILY Rosuvastatin [Crestor] 10 mg PO DAILY Losartan Potassium [Cozaar] 100 mg PO DAILY Itraconazole 100 mg PO DAILY Discharge Medication List Multivitamins, Thera [Multivitamin (formulary)] 1 tab PO DAILY 08/13/20 [History] Itraconazole 100 mg PO DAILY 01/28/22 [History] Losartan Potassium [Cozaar] 100 mg PO DAILY 01/28/22 [History] Rosuvastatin [Crestor] 10 mg PO DAILY 01/28/22 [History] Aspirin 81 mg PO DAILY #30 tab 01/30/22 [Rx] Cyclobenzaprine [Flexeril] 5 mg PO TID PRN #30 tab 01/30/22 [Rx] Follow up Appointment(s)/Referral(s): Blanco Diego MD [STAFF PHYSICIAN] - 1 Week (Office will call you for a follow up appointment. ) Elsie Franco MD [Primary Care Provider] - 1-2 days (Office is closed, please call to schedule follow up appointment. ) Activity/Diet/Wound Care/Special Instructions: Diet: Low salt FU PCP within 1-2 days of DC. FU with Dr. Cruz within 1 week of DC to arrange for stress test or cardiac cath. Take all medications as advised. Come back to the ED for worsening chest pain, SOB, palpitations or lightheadedness. Discharge Disposition: HOME SELF-CARE
== END 2022-01-30 11:35 | disposition home or self-care (01) ==
LOC: EC 16:04 → 3SCARD 21:35
PROVIDERS: ADMIT Internal Medicine; ATTEND Internal Medicine
DX: R10.11 Right upper quadrant pain (principal); R77.8 Other specified abnormalities of plasma proteins; N17.9 Acute kidney failure, unspecified; K76.89 Other specified diseases of liver; K57.30 Diverticulosis of large intestine without perforation or abscess without bleeding; M43.17 Spondylolisthesis, lumbosacral region; I12.9 Hypertensive chronic kidney disease with stage 1 through stage 4 chronic kidney disease, or unspecified chronic kidney disease; N18.9 Chronic kidney disease, unspecified; I08.1 Rheumatic disorders of both mitral and tricuspid valves; I49.3 Ventricular premature depolarization; E78.5 Hyperlipidemia, unspecified; I37.1 Nonrheumatic pulmonary valve insufficiency; Z79.899 Other long term (current) drug therapy; Z96.659 Presence of unspecified artificial knee joint; Z79.82 Long term (current) use of aspirin; Z82.49 Family history of ischemic heart disease and other diseases of the circulatory system
CPT/HCPCS: 96366 ×2; 96372 ×3; 96361; 96365; 96375; 99285; 36415; 93005; 93306; 80053; 82150; 83690; 83735; 84484 ×2; 85025; 81003; 76705; 74177; G0378 ×3; J3475; J1170; Q9967; J1644 ×2

== ENCOUNTER → 2023-08-26 | Outpatient (CLI) | payer BC ==
[2023-08-27 02:38] LABS: HCT 45.1 % (39.6-50.0); MCH 31.4 pg (27.0-32.0); MCHC 33.3 g/dL (32.0-37.0); MCV 94.4 FL (80.0-97.0); Mean Platelet Volume 9.5 FL (9.5-12.2); NRBC Per 100 WBC 0 X 10*3/uL (0.00-0.01); Platelet Count 243 X 10*3/uL (140-440); RBC 4.78 X 10*6/uL (4.40-5.60); RDW 13.4 % (11.5-14.5); WBC 5.87 X 10*3/uL (4.50-10.00)
[2023-08-27 02:40] LABS: Blood Urea Nitrogen 28.2 mg/dL (9.0-27.0); Carbon Dioxide 22.6 mmol/L (21.6-31.8); Chloride 105 mmol/L (96-109); Potassium 4.1 mmol/L (3.5-5.5); Sodium 141 mmol/L (135-145)
== END | disposition home or self-care (01) ==
LOC: LABWHC1 14:56
PROVIDERS: ATTEND Internal Medicine Interventional Cardiology
DX: Z01.812 Encounter for preprocedural laboratory examination (principal); R06.02 Shortness of breath
CPT/HCPCS: 36415; 80051; 82565; 84520; 85027

== ENCOUNTER 2023-09-02 06:17 | Day surgery (SDC) | payer BC ==
[~2023-09-02 06:17] MED LIST changes: +ALPRAZolam 0.25 MG TAB PO PRN; +ALPRAZolam 0.5 MG TAB PO PRN; +ASPIRIN 325 MG TAB PO STA; +ATORVASTATIN 80 MG TAB PO STA; +HEPARIN SODIUM,PORCINE (1 ML) 2,500 UNIT in SODIUM CHLORIDE 0.9% 250 ML IRRIGATION PRN; +HEPARIN SODIUM,PORCINE 10,000 UNIT in SODIUM CHLORIDE 0.9% 1,000 ML IRRIGATION PRN; -LACTATED RINGERS 1,000 ML IV ONE; -LACTATED RINGERS 1,000 ML IV SCH; -LIDOCAINE 1% (10MG/ML) FOR IV START INTRADERMA PRN; -LIDOCAINE 1% INJ 10MG/ML (20 ML MDV) ONE; +NITROGLYCERIN SL TABS 0.4 MG TAB SUBLINGUAL PRN; -PROPOFOL 10 MG/ML 20 ML VIAL IV ONE; +SODIUM CHLORIDE 0.9% 1,000 ML in EMPTY BAG 1 BAG IV SCH
[2023-09-02] MEDS: SODIUM CHLORIDE 0.9% 1,000 ML IV ONE (06:37)
[2023-09-02] MEDS ORDERED: HEPARIN SODIUM 1,000 UN/ML (10ML VL) ONE (07:08)
[2023-09-02] MEDS ORDERED: LIDOCAINE 1% INJ 10MG/ML (20 ML MDV) ONE (07:08)
[2023-09-02] MEDS ORDERED: VERAPAMIL 2.5 MG/ML 2 ML AMP ONE (07:08)
[2023-09-02 07:19] VITALS: RESP 16; TEMP 97.7
[2023-09-02] MEDS: MIDAZOLAM 2 MG/2 ML VIAL IVP ONE (07:40)
[2023-09-02] MEDS: LIDOCAINE 1% INJ 10MG/ML (20 ML MDV) SQ ONE (07:41)
[2023-09-02] MEDS: VERAPAMIL SYRINGE (5 MG/10 ML) INTRAARTER ONE (07:42)
[2023-09-02] MEDS: HEPARIN SODIUM 1,000 UN/ML (10ML VL) IVP ONE (07:43)
[2023-09-02] MEDS: IOPAMIDOL-370 100ML BTL INJ ONE (07:52)
[2023-09-02] MEDS ORDERED: RX INFO: IV CONTRAST WAS GIVEN 1 EACH MISC MISCELLANE PRN (07:56)
[2023-09-02] MEDS ORDERED: SODIUM CHLORIDE 0.9% 1,000 ML IV SCH (08:00)
--- NOTE | 2023-09-02 08:00 | P.PCN ---
Date of Procedure: 09/02/23 Operative Findings: CARDIAC CATHETERIZATION PERFORMING PHYSICIAN: Blanco Diego MD, RPVI PROCEDURE PERFORMED: 1. Selective right and left coronary angiogram 2. Left heart catheterization 3. Ultrasound-guided access of the right radial artery INDICATION: Symptomatic 63-year-old gentleman with abnormal myocardial perfusion imaging stress test COMPLICATION: None APPROACH: Right radial artery LEVEL OF SEDATION: Moderate with a sedation length of 14 minutes PROCEDURE DESCRIPTION: After obtaining an informed consent, the patient was brought to cardiac clinical laboratory scientist. Local anesthesia was performed using lidocaine subcutaneously. The right radial artery was cannulated using Seldinger technique, the guidewire passed easily, following that we advanced a 5-British sheath dilator assembly, the wire and dilator were removed and sheath was flushed. Following that, 2 mg of verapamil along with 5000 unit heparin were given. Selective right and left coronary angiogram using a 6-British JR4 and JL 3.5 catheters. Following that we did left heart catheterization using 6-British pigtail catheter. The procedure was completed there was no complication. SELECTIVE CORONARY ANGIOGRAM: The right coronary artery: Large-caliber vessel and a dominant vessel and appears to be angiographically normal Left main: Is angiographically normal The left circumflex: Large-caliber vessel and nondominant vessel and appears to be angiographically normal with gives rise into a large OM1 which has an ostial lesion appears to be in the range of 50% The left anterior descending artery: Large-caliber vessel. Is angiographically normal. Gives rise into multiple diagonal branches appear to be normal HEMODYNAMICS: The LVEDP was 14 mmHg with no significant gradient across aortic valve CONCLUSION: 1. Intermediate disease involving the ostial of the first obtuse marginal branch which is a large-caliber vessel 2. Normal left-sided filling pressure POSTPROCEDURE MANAGEMENT: Consider medical treatment. Consider IFR of the OM1 if the patient remains symptomatic in spite of maximized medical treatment
[2023-09-02 11:26] VITALS: BP 117/68; PULSE 66
== END 2023-09-02 11:54 | disposition home or self-care (01) ==
LOC: CATHCVL 06:17
PROVIDERS: ATTEND Internal Medicine Interventional Cardiology
DX: R94.39 Abnormal result of other cardiovascular function study (principal); R06.02 Shortness of breath; I10 Essential (primary) hypertension; E78.5 Hyperlipidemia, unspecified; E66.3 Overweight; Z78.9 Other specified health status; Z79.82 Long term (current) use of aspirin; Z79.899 Other long term (current) drug therapy
CPT/HCPCS: 93458; 76937; 99152; C1769; C1894; J2250; J2001; J1644; Q9967